=== PATIENT | male | born 1950 | race Caucasian/White ===

== ENCOUNTER 2024-11-12 06:11 | Day surgery (SDC) | payer MEDICARE, OTHER, SELFPAY ==
[2024-11-12 09:35] VITALS: BMI 19.5
[2024-11-12 09:37] VITALS: BMI 19.5
[2024-11-12 09:38] VITALS: BP 122/73
[2024-11-12 11:00] VITALS: BP 86/62
[2024-11-12 11:15] VITALS: BP 109/73
[2024-11-12 11:30] VITALS: BP 112/79
--- NOTE | 2024-11-12 11:37 | PTCARENOTE ---
Dr. Whiting at bedside for second time per request of patient. Discussing report/findings of care.
== END 2024-11-12 11:46 | disposition home or self-care (01) ==
LOC: SDS 06:11
PROVIDERS: ATTENDING PHYSICIAN Internal Medicine Gastroenterology
DX: Z12.11 Encounter for screening for malignant neoplasm of colon (principal); K57.30 Diverticulosis of large intestine without perforation or abscess without bleeding; K64.8 Other hemorrhoids; D12.5 Benign neoplasm of sigmoid colon; K63.5 Polyp of colon
CPT/HCPCS: 45385; 45380; 88305